=== PATIENT | female | born 1975 | race Caucasian/White ===

== ENCOUNTER 2022-04-08 20:07 | Emergency (ER) | payer BC ==
[~2022-04-08] VITALS: Ht 182.9 cm; Wt 138.6 kg
[2022-04-08 21:58] LABS: URINE HCG NEGATIVE (NEG)
[2022-04-08 21:59] LABS: CLARITY,URINE TURBID (Clear)
[2022-04-08 22:06] LABS: UA COLLECTION TYPE CLN CATCH MIDSTREAM
[2022-04-08 22:07] LABS: COLOR,URINE ORANGE (Yellow)
[2022-04-08 22:13] LABS: WBC,URINE TNTC /HPF (0-4)
[2022-04-08 22:14] LABS: BACTERIA,URINE 3+ /HPF (Neg); SQUAMOUS EPITHELIAL CELL,UR FEW /LPF (FEW); WBC CLUMPS,URINE MODERATE /HPF (NEGATIVE); YEAST FEW /HPF (NEGATIVE)
[2022-04-08] MEDS ORDERED: normal saline 1000ML IV soln IVB ONE (22:15)
[2022-04-08] MEDS ORDERED: morphine 4 MG/ML inj SYRINge IV PRN (22:15)
[2022-04-08] MEDS ORDERED: ketorolac trometh. 30mg/ml inj. IV ONE (22:15)
[2022-04-08] MEDS ORDERED: ondansetron/PF 4mg/2ml inj IV ONE (22:15)
[2022-04-08] MEDS ORDERED: CefTRIAXone 2gm/D5W 50ml BAG 50 ML IV ONE (22:20)
[2022-04-08 23:20] LABS: BASOPHILS # (AUTO) 0.1 X10'3 (0-0.2); BASOPHILS % (AUTO) 0.5 % (0-1); EOSINOPHILS # (AUTO) 0.1 X10'3 (0-0.9); EOSINOPHILS % (AUTO) 0.4 % (0-6); HEMATOCRIT 40.1 % (35.0-45.0); HEMOGLOBIN 13.8 g/dl (12.0-16.0); LYMPHOCYTES # (AUTO) 1.8 X10'3 (1.1-4.8); LYMPHOCYTES % (AUTO) 14.5 % (21-51); MEAN CORPUSCULAR HEMOGLOBIN 30.5 PG (27.0-31.0); MEAN CORPUSCULAR HGB CONC 34.3 g/dL (33.0-36.5); MEAN CORPUSCULAR VOLUME 88.9 FL (78-98); MEAN PLATELET VOLUME 7.8 FL (7.4-10.4); MONOCYTES # (AUTO) 0.8 X10'3 (0-0.9); MONOCYTES % (AUTO) 6.5 % (2-12); NEUTROPHILS # (AUTO) 9.8 X10'3 (1.8-7.7); NEUTROPHILS % (AUTO) 78.1 % (42-75); PLATELET COUNT 310 X10'3 (140-440); RED BLOOD COUNT 4.51 X10'6 (4.20-5.60); RED CELL DISTRIBUTION WIDTH 13.4 % (11.5-14.5); WHITE BLOOD COUNT 12.5 X10'3 (4.5-11.0)
[2022-04-08 23:35] LABS: ALANINE AMINOTRANSFERASE 22 U/L (12-78); ALBUMIN 3.8 G/DL (3.4-5.0); ALKALINE PHOSPHATASE 89 IU/L (46-116); ASPARTATE AMINO TRANSFERASE 18 U/L (10-37); BILIRUBIN,TOTAL 0.6 MG/DL (0.1-1.0); BLOOD UREA NITROGEN 13 MG/DL (7-18); BUN/CREATININE RATIO 14.4 (6.6-38.0); CALCIUM 9.5 MG/DL (8.5-10.1); CHLORIDE 104 MMOL/L (99-107); GLUCOSE 111 MG/DL (70-104); LIPASE 75 U/L (73-393); TOTAL CARBON DIOXIDE 24.3 MMOL/L (24-32); TOTAL PROTEIN 7.7 G/DL (6.4-8.2); eGFR 67 ML/MIN
[2022-04-08 23:49] LABS: ANION GAP 13 (8-16); SODIUM 141 MMOL/L (135-145)
[2022-04-09] MEDS ORDERED: CEPH-585 PO (00:48)
[2022-04-09 00:56] VITALS: BP 135/7
--- NOTE | 2022-04-09 12:31 | NUR ---
Patient called regarding need to change pharmacy for prescription due to [facility] in [place] being closed due to short staffing. She requested that keflex prescription be sent to [facility] in [place]. I called the pharmacy and left a message for the pharmacist. Patient called back and notified regarding the change.
== END 2022-04-09 00:59 | disposition home or self-care (01) ==
LOC: ER 20:08
DX: N12 Tubulo-interstitial nephritis, not specified as acute or chronic (principal); Z88.0 Allergy status to penicillin; Z79.899 Other long term (current) drug therapy
CPT/HCPCS: 36415; 80053; 81001; 81025; 83690; 85025; 87077; 87088; 87186; 96365; 96375; 99284; J0696; J1885; J2270; J2405; J7030